=== PATIENT | male | born 1965 ===

== ENCOUNTER → 2023-04-29 06:32 | Day surgery (SDC) | payer OTHER, SELFPAY | LOC: GI 06:32 | PROVIDERS: ATTENDING PHYSICIAN Specialist | DX: Z12.11 Encounter for screening for malignant neoplasm of colon (principal); Z86.010 Personal history of colon polyps; K57.30 Diverticulosis of large intestine without perforation or abscess without bleeding; D12.3 Benign neoplasm of transverse colon; D12.4 Benign neoplasm of descending colon; D12.5 Benign neoplasm of sigmoid colon | CPT/HCPCS: 45385; 88305 ==

== ENCOUNTER 2023-06-23 08:38 | Emergency (ER) | payer OTHER, SELFPAY ==
[2023-06-23 08:45] VITALS: BP 154/105
[2023-06-23 08:46] VITALS: BMI 29.3
--- NOTE | 2023-06-23 09:18 | ED.SKININJ ---
HPI-Injury
General
Chief Complaint: Bite
Source: patient
Exam Limitations: none
Time Seen by Provider: 06/23/23 09:06
Nursing documentation reviewed up to this point in time: agreed with
Travel History
Have you had any contact with someone who has COVID-19?: No
Do you have any symptoms of coronavirus? Fever > 100 degrees, chills, cough, shortness of breath, sore throat, loss of taste or smell, muscle aches, or headache?: No
History of Present Illness-Injury
Initial Injury comments:
57 y/o M R hand dominant [employer]
here with right hand dog bites from a dog that came to the door when he knocked on someone's door this morning, while on shift.
the dog bit his right hand dorsum and palmar
pt has some discomfort with moving his hand/finger but no deficits
reported a little tingling right around the wound
no fever, bleeding
pt has had tetanus shot but cannot recall when
dog is vaccinated for rabies.
Past History
Past History
ED Past Medical History: HTN
ED Past Surgical History: None
Social History
Tobacco: Non-smoker
Living: with family
Employment: Employed
Review of Systems
Review of Systems
Allergies reviewed?: Yes
All Other Systems: Not applicable
Phy Exam
Physical Exam
Physical Exam:
GENERAL: Alert , in no apparent distress
CARDIAC: cap refill intact, radial pulse intact
NEUROLOGICAL: Alert and oriented, no focal neuro deficits, sensation intact, normal strength;
SKIN: Warm and dry, skin intact.
multiple superficial punctures/laceration to right hand dorsum, 1 small one distal 2nd MCP jointregion
no bleeding
no gaping wounds
MUSCULOSKELETAL: hand full rom, sensation intact
multiple small laceration/punctur wounds along the dorsum of the hand in between thumb and index finger
PSYCH: Normal and appropriate interaction.
Course
Orders/Labs/Results
Orders:
Orders
06/23/23 09:18
Amoxicillin 875 mg/Clav 125 mg [Augmentin 875 mg/125 mg] 1 tablet PO NOW STA
Tetanus/Diphth/Acelpertussis [Adacel] 0.5 ml IM .ONCE ONE
Vital Signs
Initial and Last Documented VS:
Initial Vital Signs
Temp Pulse Resp BP Pulse Ox
98.9 F 88 15 154/105 98
06/23/23 08:45 06/23/23 08:45 06/23/23 08:45 06/23/23 08:45 06/23/23 08:45
Last Documented Vital Signs
Temp Pulse Resp BP Pulse Ox
98.9 F 88 15 154/105 98
06/23/23 08:45 06/23/23 08:45 06/23/23 08:45 06/23/23 08:45 06/23/23 08:45
MDM/Problems Addressed
Differential Diagnosis Includes:
puncture wounds, lacerations, bite
MDM/Problems Addressed:
57 y/o M right hand dominant M
[employer] on duty bit by someones dog when he knocked on the door
pt has full ROM of the hand without deficits and sensation is intact, reporting some pain with movement
tetanus last not known so will update
augmentin bid
wounds are not gaping to require closure
irrigatd with chlorhexadine and saline and dressed with bacitracin dressing
with hand wrapped, pt should have light duty and not hold a weapon
his supervisor [employer] is aware
AUGMENTIN BID X 7 DAYS
f/u pcp tomrorw.
bp elevated, likely situational, pt upset about not being able to return to full duty today
takes bp med
d/c home, f/u with pcp
*Critical Care Note
Total Time (30-74mins, 75-104mins- exclusive of procedures): Not Applicable
ED Attending Note
-
Portions of this chart may have been created with voice recognition software.� Occasional wrong word or��sound alike� substitutions may have occurred due to the inherent limitations of voice recognition software.
Discharge Plan
Departure
Patient Disposition: Home (Routine Discharge)
Date of Disposition: 06/23/23
Time of Disposition: 09:25
Patient with high blood pressure during this ER visit?: Yes
Covid-19: Not Applicable
Discharge Problem:
Dog bite
Instructions: Animal Bites (DC), Wound Care (DC), BLOOD PRESSURE
Prescriptions:
New
amoxicillin-pot clavulanate 875-125 mg tablet
1 tab PO BID Qty: 14 0RF
Stand Alone Forms: Return to Work
Activity Restrictions/Additional Instructions:
KEEP THE WOUNDS CLEAN AND DRY
WEAR THE DRESSING TODAY
YOU CAN REMOVE TONIGHT OR TOMORROW AND CLEAN TWICE A DAY WITH MILD SOAP AND WATER AND APPLY OINTMENT AND A DRESSING OR BANDAID
MOTRIN FOR PAIN NEEDED
AUGMENTIN TWICE A DAY TO PREVENT INFECTION
FOLLOW UP WITH YOUR DOCTOR FOR RETURN WORK NEEDED
RETURN FOR: DRAINAGE, SWELLING, REDNESS, INABILITY TO MOVE THE FINGERS OR HAND, FEVER, OR ANY CONCERNS.
YOUR BLOOD PRESSURE WAS ELEVATED, HAVE IT RECHECKED.
Interventions
Interventions:
*General Assessment Last Done: 06/23/23 08:45
*Neglect/Abuse Screening Last Done: 06/23/23 08:45
ED-Skin Assessment Last Done: 06/23/23 08:46
Discharge Date and Time
Print Language: HUNGARIAN
[2023-06-23] MEDS: ADACEL 0.5 ML IM (09:28)
[2023-06-23] MEDS: AUGMENTIN 875 MG/125 MG 1 TABLET PO (09:28)
== END 2023-06-23 09:42 | disposition home or self-care (01) ==
LOC: EMR 08:38
PROVIDERS: EMERGENCY PHYSICIAN Emergency Medicine; FAMILY PHYSICIAN Family Medicine
DX: S61.451A Open bite of right hand, initial encounter (principal); W54.0XXA Bitten by dog, initial encounter; Z23 Encounter for immunization; Y99.0 Civilian activity done for income or pay; R03.0 Elevated blood-pressure reading, without diagnosis of hypertension
CPT/HCPCS: 99284; 90471; 90715

== ENCOUNTER 2024-04-04 11:10 | Emergency (ER) | payer OTHER, SELFPAY ==
[2024-04-04 11:17] VITALS: BP 155/115
[2024-04-04] MEDS: TORADOL 15 MG IM (12:42)
--- NOTE | 2024-04-04 13:30 | ED.GENMED ---
History of Present Illness
General
Chief Complaint: Fall
Time Seen by Provider: 04/04/24 12:00
History of Present Illness
History of Present Illness:
58-year-old male presenting to the emergency department with left-sided rib pain after a fall. Patient reports yesterday he fell in his driveway, slipped on the ice and landed on his left mid axillary rib region. He reports pain with cough and
deep inspiration. Denies any head injury or loss of consciousness. He is not on any blood thinners. He denies any chest pain. He denies any additional injuries from the fall. He denies fever. He denies additional acute medical complaint
Past History
Past History
ED Past Medical History: HTN
ED Past Surgical History: None
Social History
Tobacco: Non-smoker
Living: with family
Employment: Employed
Phy Exam
Physical Exam
Physical Exam:
General: Well-appearing, no clinical signs of dehydration, nontoxic and in no acute distress
HEENT: protecting airway
Neck: appears supple
CV: Normal heart rate, regular rhythm
Resp: No accessory muscle use, no increased work of breathing, lungs clear to auscultation bilaterally. Tenderness at the superior aspect of the mid axillary rib angles of ribs 5 to 6, no crepitus
Abd: Soft and non-distended, no tenderness to palpation, normal bowel sounds
Extremities: No deformities, no swelling, no erythema, pulses and sensation intact
Neuro: alert, no focal neurologic deficit
: deferred
Rectal: deferred
Psych: Normal affect
Skin: Intact
Course
Orders/Labs/Results
Orders:
Orders
04/04/24 11:17
Ribs, Left 3 View W/PA Chest CR [CR Ribs-left 3 Vw W/pa Chest] Urgent
Comment:
Reason For Exam: pain after fall
04/04/24 12:30
Ketorolac [Toradol] 15 mg IM NOW STA
Vital Signs
Initial and Last Documented VS:
Initial Vital Signs
Temp Pulse Resp Pulse Ox
98.6 F 92 18 97
04/04/24 11:15 04/04/24 11:15 04/04/24 11:15 04/04/24 11:15
Last Documented Vital Signs
Temp Pulse Resp BP Pulse Ox
98.6 F 92 18 155/115 97
04/04/24 11:15 04/04/24 11:15 04/04/24 11:15 04/04/24 11:17 04/04/24 11:15
MDM/Problems Addressed
MDM/Problems Addressed:
58-year-old male presenting for left-sided rib pain after a fall on the ice yesterday. Vital signs on arrival significant for high blood pressure which patient attributes to pain.
On exam patient is no acute distress. Focal tenderness at the rib region, mid axillary, superiorly. Do suspect rib contusion versus rib fracture. Low suspicion for pneumothorax with lungs clear to auscultation bilaterally. No additional signs of
injury from fall. Toradol administered for pain. Will obtain x-ray imaging.
13:30 - X-ray is consistent with a displaced fracture of the left fifth rib. No signs of pneumothorax. Feel stable for discharge. Will provide incentive spirometry. Advised continued supportive therapy. Return precautions discussed and patient
verbalized understanding
*Critical Care Note
Total Time (30-74mins, 75-104mins- exclusive of procedures): Not Applicable
ED Attending Note
-
Portions of this chart may have been created with voice recognition software.� Occasional wrong word or��sound alike� substitutions may have occurred due to the inherent limitations of voice recognition software.
Discharge Plan
Departure
Prescriptions:
No Action
amoxicillin-pot clavulanate 875-125 mg tablet
1 tab PO BID Qty: 14 0RF
Referrals:
Pradeep Webb MD [Family Provider] -
Discharge Date and Time
Print Language: GEORGIAN
== END 2024-04-04 14:12 | disposition home or self-care (01) ==
LOC: EMR 11:10
PROVIDERS: EMERGENCY PHYSICIAN Student in an Organized Health Care Education/Training Program; FAMILY PHYSICIAN Family Medicine
DX: S22.32XA Fracture of one rib, left side, initial encounter for closed fracture (principal); W00.0XXA Fall on same level due to ice and snow, initial encounter; I10 Essential (primary) hypertension
CPT/HCPCS: 96372; 99284; 71101